=== PATIENT | female | born 1965 | race Caucasian/White ===

== ENCOUNTER 2021-09-28 18:44 | Inpatient (IN) ==
[2021-09-28] MEDS ORDERED: VANCOMYCIN IVPB PRN (21:48)
[2021-09-28] MEDS ORDERED: Dextrose Gel 15 GM/37.5 ML TUBE PO PRN ×2 (21:54)
[2021-09-28] MEDS ORDERED: D5% in Water 1,000 ML IVC PRN (21:54)
[2021-09-28] MEDS ORDERED: *HR* Dextrose 50 % in Water (Syg) 50 ML SYRINGE IVP PRN (21:54)
[2021-09-28] MEDS ORDERED: Budesonide/Formoterol 160/4.5 1 PUFF INH IH SCH (22:00)
[2021-09-29] MEDS ORDERED: Ondansetron ODT 4 MG TAB.RAPDIS SL PRN (04:20)
[2021-09-29] MEDS: *HR* OxyCODONE/APAP 5/325 TABLET PO PRN ×3 (04:43→19:56)
[2021-09-29] MEDS: carvediloL 6.25 MG TABLET PO SCH ×2 (08:02→17:20)
[2021-09-29] MEDS: Saliva Stimulant 44.3ml BOTTLE PO SCH ×4 (08:03→20:30)
[2021-09-29] MEDS: Insulin LISPRO 300 UNITS/3 ML VIAL SUBQ SCH ×4 (08:03→19:58)
[2021-09-29 08:09] LABS: Basophils % 0.4 %; Eosinophils # 0.1 K/mcL (0.0-0.6); Eosinophils % 1.5 %; Hematocrit 26.6 % (35.3-44.9); Immature Granulocytes % 1.1 % (0-4); Lymphocytes # 0.5 K/mcL (0.6-4.6); Lymphocytes % 7.4 %; Mean Corpuscular HGB Conc 30.1 g/dL (31.6-35.5); Mean Corpuscular Volume 96.4 fL (83.0-100.0); Monocytes # 0.3 K/mcL (0.0-1.3); Monocytes % 4.6 %; Neutrophils # 6.2 K/mcL (1.6-8.9); Platelet Count 123 K/mcL (140-400); Red Blood Count 2.76 M/mcL (3.82-4.97); Red Cell Distribution Width 16.2 % (11.5-14.5); White Blood Count 7.3 K/mcL (4.3-11.1)
[2021-09-29] MEDS: Renal Vitamin 1 CAP CAPSULE PO SCH (08:18)
[2021-09-29] MEDS: Aspirin Enteric Coated 81 MG Tablet PO SCH (08:18)
[2021-09-29] MEDS: hydrALAZINE 25 MG TABLET PO SCH ×3 (08:18→19:56)
[2021-09-29] MEDS: Cholecalciferol (D-3) 1,000 UNIT (25MCG) TABLET PO SCH (08:19)
[2021-09-29] MEDS: Vitamin B Complex/Vit C/Vit E 1 EACH TABLET PO SCH (08:19)
[2021-09-29] MEDS: NIFEdipine XL (24 HR) 60 MG TAB.ER.24 PO SCH (08:19)
[2021-09-29] MEDS: amLODIPine 5 MG TABLET PO SCH (08:19)
[2021-09-29] MEDS: Chlorhexidine Rinse 15 ML MOUTHWASH MM SCH ×2 (08:20→19:56)
[2021-09-29 08:34] LABS: Calcium 8.7 mg/dL (8.6-10.3); Potassium 4.5 mEq/L (3.5-5.1)
[2021-09-29] MEDS: Budesonide/Formoterol 160/4.5 1 PUFF INH IH SCH ×2 (09:11→21:25)
[2021-09-29] MEDS: Metoclopramide 10 MG/10 ML UD.LIQ PO PRN (18:39)
[2021-09-29] MEDS: Melatonin 3 MG TABLET PO PRN (19:56)
[2021-09-30] MEDS: Budesonide/Formoterol 160/4.5 1 PUFF INH IH SCH ×2 (08:04→22:09)
[2021-09-30] MEDS: Insulin LISPRO 300 UNITS/3 ML VIAL SUBQ SCH ×4 (08:36→20:15)
[2021-09-30] MEDS: *HR* OxyCODONE/APAP 5/325 TABLET PO PRN ×2 (08:37→20:40)
[2021-09-30] MEDS: Chlorhexidine Rinse 15 ML MOUTHWASH MM SCH ×2 (08:37→20:15)
[2021-09-30] MEDS: NIFEdipine XL (24 HR) 60 MG TAB.ER.24 PO SCH (08:38)
[2021-09-30] MEDS: amLODIPine 5 MG TABLET PO SCH (08:38)
[2021-09-30] MEDS: hydrALAZINE 25 MG TABLET PO SCH ×3 (08:38→20:15)
[2021-09-30] MEDS: Renal Vitamin 1 CAP CAPSULE PO SCH (08:38)
[2021-09-30] MEDS: Cholecalciferol (D-3) 1,000 UNIT (25MCG) TABLET PO SCH (08:38)
[2021-09-30] MEDS: carvediloL 6.25 MG TABLET PO SCH ×2 (08:38→17:29)
[2021-09-30] MEDS: Vitamin B Complex/Vit C/Vit E 1 EACH TABLET PO SCH (08:38)
[2021-09-30] MEDS: Aspirin Enteric Coated 81 MG Tablet PO SCH (08:38)
[2021-09-30] MEDS: Saliva Stimulant 44.3ml BOTTLE PO SCH ×4 (08:41→20:14)
[2021-10-01] MEDS: Metoclopramide 10 MG/10 ML UD.LIQ PO PRN (00:17)
[2021-10-01] MEDS: hydrALAZINE 25 MG TABLET PO SCH ×3 (07:39→20:39)
[2021-10-01] MEDS: Chlorhexidine Rinse 15 ML MOUTHWASH MM SCH ×3 (07:39→20:46)
[2021-10-01] MEDS: Aspirin Enteric Coated 81 MG Tablet PO SCH (07:40)
[2021-10-01] MEDS: NIFEdipine XL (24 HR) 60 MG TAB.ER.24 PO SCH (07:40)
[2021-10-01] MEDS: Renal Vitamin 1 CAP CAPSULE PO SCH (07:40)
[2021-10-01] MEDS: amLODIPine 5 MG TABLET PO SCH (07:40)
[2021-10-01] MEDS: Vitamin B Complex/Vit C/Vit E 1 EACH TABLET PO SCH (07:40)
[2021-10-01] MEDS: Insulin LISPRO 300 UNITS/3 ML VIAL SUBQ SCH ×4 (07:40→21:49)
[2021-10-01] MEDS: carvediloL 6.25 MG TABLET PO SCH ×2 (07:40→18:07)
[2021-10-01] MEDS: Cholecalciferol (D-3) 1,000 UNIT (25MCG) TABLET PO SCH (07:40)
[2021-10-01] MEDS: Saliva Stimulant 44.3ml BOTTLE PO SCH (07:41)
[2021-10-01] MEDS: Budesonide/Formoterol 160/4.5 1 PUFF INH IH SCH ×2 (08:11→20:53)
[2021-10-01] MEDS: *HR* OxyCODONE/APAP 5/325 TABLET PO PRN ×2 (13:13→20:43)
[2021-10-01] MEDS ORDERED: Vancomycin 500 MG in 0.9 % Sodium Chloride Mini Bag 100 ML IVPB ONE (18:00)
[2021-10-01] MEDS: *HR* Heparin 5,000 UNIT/ML VIAL SQ SCH (18:07)
[2021-10-01] MEDS: Melatonin 3 MG TABLET PO PRN (20:40)
[2021-10-02] MEDS: *HR* Heparin 5,000 UNIT/ML VIAL SQ SCH ×2 (05:34→20:51)
[2021-10-02] MEDS: hydrALAZINE 25 MG TABLET PO SCH ×3 (09:29→20:50)
[2021-10-02] MEDS: *HR* OxyCODONE/APAP 5/325 TABLET PO PRN ×3 (09:29→20:50)
[2021-10-02] MEDS: NIFEdipine XL (24 HR) 60 MG TAB.ER.24 PO SCH (09:30)
[2021-10-02] MEDS: carvediloL 6.25 MG TABLET PO SCH ×2 (09:31→20:51)
[2021-10-02] MEDS: Renal Vitamin 1 CAP CAPSULE PO SCH (09:31)
[2021-10-02] MEDS: Vitamin B Complex/Vit C/Vit E 1 EACH TABLET PO SCH (09:31)
[2021-10-02] MEDS: amLODIPine 5 MG TABLET PO SCH (09:31)
[2021-10-02] MEDS: Cholecalciferol (D-3) 1,000 UNIT (25MCG) TABLET PO SCH (09:31)
[2021-10-02] MEDS: Insulin LISPRO 300 UNITS/3 ML VIAL SUBQ SCH ×4 (09:31→20:50)
[2021-10-02] MEDS: Budesonide/Formoterol 160/4.5 1 PUFF INH IH SCH ×2 (09:34→21:44)
[2021-10-02] MEDS: Aspirin Enteric Coated 81 MG Tablet PO SCH (09:49)
[2021-10-02] MEDS: Chlorhexidine Rinse 15 ML MOUTHWASH MM SCH ×2 (18:47→20:51)
[2021-10-02] MEDS: Melatonin 3 MG TABLET PO PRN (20:49)
[2021-10-03] MEDS: *HR* Heparin 5,000 UNIT/ML VIAL SQ SCH ×2 (05:34→17:41)
[2021-10-03] MEDS: Insulin LISPRO 300 UNITS/3 ML VIAL SUBQ SCH ×4 (08:30→20:56)
[2021-10-03] MEDS: Budesonide/Formoterol 160/4.5 1 PUFF INH IH SCH ×2 (12:06→23:21)
[2021-10-03] MEDS: Cholecalciferol (D-3) 1,000 UNIT (25MCG) TABLET PO SCH (14:53)
[2021-10-03] MEDS: hydrALAZINE 25 MG TABLET PO SCH ×3 (14:53→20:50)
[2021-10-03] MEDS: NIFEdipine XL (24 HR) 60 MG TAB.ER.24 PO SCH (14:54)
[2021-10-03] MEDS: amLODIPine 5 MG TABLET PO SCH (14:54)
[2021-10-03] MEDS: carvediloL 6.25 MG TABLET PO SCH ×2 (14:54→17:41)
[2021-10-03] MEDS: Aspirin Enteric Coated 81 MG Tablet PO SCH (14:54)
[2021-10-03] MEDS: Renal Vitamin 1 CAP CAPSULE PO SCH (14:55)
[2021-10-03] MEDS: Vitamin B Complex/Vit C/Vit E 1 EACH TABLET PO SCH (14:55)
[2021-10-03] MEDS: Chlorhexidine Rinse 15 ML MOUTHWASH MM SCH ×2 (15:02→20:55)
[2021-10-03] MEDS: *HR* OxyCODONE/APAP 5/325 TABLET PO PRN (17:41)
[2021-10-03] MEDS: Melatonin 3 MG TABLET PO PRN (20:52)
[2021-10-04] MEDS: *HR* Heparin 5,000 UNIT/ML VIAL SQ SCH ×2 (05:40→17:22)
[2021-10-04 07:43] LABS: Basophils % 0.7 %; Eosinophils # 0.1 K/mcL (0.0-0.6); Eosinophils % 1.8 %; Hematocrit 26.2 % (35.3-44.9); Hemoglobin 7.8 g/dL (11.5-15.4); Immature Granulocytes % 1.1 % (0-4); Lymphocytes # 0.5 K/mcL (0.6-4.6); Lymphocytes % 8.8 %; Mean Corpuscular HGB Conc 29.8 g/dL (31.6-35.5); Mean Corpuscular Hemoglobin 29.9 pg (28.0-33.3); Mean Corpuscular Volume 100.4 fL (83.0-100.0); Mean Platelet Volume 10.5 fL (9.4-12.4); Monocytes # 0.6 K/mcL (0.0-1.3); Monocytes % 10.2 %; Neutrophils # 4.3 K/mcL (1.6-8.9); Platelet Count 152 K/mcL (140-400); Red Blood Count 2.61 M/mcL (3.82-4.97); Red Cell Distribution Width 16.1 % (11.5-14.5); Segmented Neutrophils % 77.4 %; White Blood Count 5.6 K/mcL (4.3-11.1)
[2021-10-04 07:44] LABS: Albumin 3.1 g/dL (3.5-5.7); Albumin/Globulin Ratio 0.8 (1.1-2.2); Bilirubin,Total 0.4 mg/dL (0.3-1.0); Calcium 9.5 mg/dL (8.6-10.3); Potassium 5.4 mEq/L (3.5-5.1); Total Protein 7.1 g/dL (6.4-8.9)
[2021-10-04] MEDS: Insulin LISPRO 300 UNITS/3 ML VIAL SUBQ SCH ×4 (09:12→21:18)
[2021-10-04] MEDS: Budesonide/Formoterol 160/4.5 1 PUFF INH IH SCH ×2 (09:35→21:59)
[2021-10-04] MEDS: Aspirin Enteric Coated 81 MG Tablet PO SCH (11:08)
[2021-10-04] MEDS: Renal Vitamin 1 CAP CAPSULE PO SCH (11:08)
[2021-10-04] MEDS: hydrALAZINE 25 MG TABLET PO SCH ×3 (11:08→21:17)
[2021-10-04] MEDS: amLODIPine 5 MG TABLET PO SCH (11:08)
[2021-10-04] MEDS: Vitamin B Complex/Vit C/Vit E 1 EACH TABLET PO SCH (11:09)
[2021-10-04] MEDS: Chlorhexidine Rinse 15 ML MOUTHWASH MM SCH ×2 (11:09→21:16)
[2021-10-04] MEDS: carvediloL 6.25 MG TABLET PO SCH ×2 (11:09→16:03)
[2021-10-04] MEDS: Cholecalciferol (D-3) 1,000 UNIT (25MCG) TABLET PO SCH (11:09)
[2021-10-04] MEDS: NIFEdipine XL (24 HR) 60 MG TAB.ER.24 PO SCH (11:09)
[2021-10-04] MEDS: *HR* OxyCODONE/APAP 5/325 TABLET PO PRN ×2 (12:19→21:16)
[2021-10-04] MEDS: Melatonin 3 MG TABLET PO PRN (21:17)
[2021-10-05] MEDS: *HR* Heparin 5,000 UNIT/ML VIAL SQ SCH ×2 (05:56→16:51)
[2021-10-05] MEDS: *HR* OxyCODONE/APAP 5/325 TABLET PO PRN ×3 (06:44→22:28)
[2021-10-05] MEDS: Budesonide/Formoterol 160/4.5 1 PUFF INH IH SCH ×2 (09:43→21:30)
[2021-10-05] MEDS: carvediloL 6.25 MG TABLET PO SCH ×2 (11:04→16:51)
[2021-10-05] MEDS: Aspirin Enteric Coated 81 MG Tablet PO SCH (11:04)
[2021-10-05] MEDS: Insulin LISPRO 300 UNITS/3 ML VIAL SUBQ SCH ×4 (11:04→22:24)
[2021-10-05] MEDS: Chlorhexidine Rinse 15 ML MOUTHWASH MM SCH ×2 (11:04→22:25)
[2021-10-05] MEDS: Cholecalciferol (D-3) 1,000 UNIT (25MCG) TABLET PO SCH (11:05)
[2021-10-05] MEDS: NIFEdipine XL (24 HR) 60 MG TAB.ER.24 PO SCH (11:05)
[2021-10-05] MEDS: amLODIPine 5 MG TABLET PO SCH (11:05)
[2021-10-05] MEDS: Renal Vitamin 1 CAP CAPSULE PO SCH (11:05)
[2021-10-05] MEDS: Vitamin B Complex/Vit C/Vit E 1 EACH TABLET PO SCH (11:05)
[2021-10-05] MEDS: hydrALAZINE 25 MG TABLET PO SCH ×3 (11:05→22:28)
[2021-10-05] MEDS: Melatonin 3 MG TABLET PO PRN (22:28)
[2021-10-06] MEDS: *HR* Heparin 5,000 UNIT/ML VIAL SQ SCH ×2 (06:26→16:54)
[2021-10-06] MEDS: Renal Vitamin 1 CAP CAPSULE PO SCH (09:11)
[2021-10-06] MEDS: amLODIPine 5 MG TABLET PO SCH (09:12)
[2021-10-06] MEDS: NIFEdipine XL (24 HR) 60 MG TAB.ER.24 PO SCH (09:12)
[2021-10-06] MEDS: hydrALAZINE 25 MG TABLET PO SCH ×3 (09:14→20:23)
[2021-10-06] MEDS: Chlorhexidine Rinse 15 ML MOUTHWASH MM SCH ×2 (09:14→20:22)
[2021-10-06] MEDS: Aspirin Enteric Coated 81 MG Tablet PO SCH (09:14)
[2021-10-06] MEDS: Vitamin B Complex/Vit C/Vit E 1 EACH TABLET PO SCH (09:15)
[2021-10-06] MEDS: Cholecalciferol (D-3) 1,000 UNIT (25MCG) TABLET PO SCH (09:15)
[2021-10-06] MEDS: carvediloL 6.25 MG TABLET PO SCH ×2 (09:15→16:54)
[2021-10-06] MEDS: *HR* OxyCODONE/APAP 5/325 TABLET PO PRN ×2 (09:17→20:21)
[2021-10-06] MEDS: Insulin LISPRO 300 UNITS/3 ML VIAL SUBQ SCH ×4 (09:18→20:22)
[2021-10-06] MEDS: Budesonide/Formoterol 160/4.5 1 PUFF INH IH SCH ×2 (09:47→23:07)
[2021-10-06] MEDS: Ondansetron ODT 4 MG TAB.RAPDIS SL PRN ×2 (14:01→20:26)
[2021-10-06] MEDS ORDERED: *HR* Promethazine 25 MG/ML VIAL IM ONE (15:18)
[2021-10-06] MEDS: Melatonin 3 MG TABLET PO PRN (20:22)
[2021-10-06] MEDS: Metoclopramide 10 MG/10 ML UD.LIQ PO PRN (20:22)
[2021-10-07] MEDS: *HR* OxyCODONE/APAP 5/325 TABLET PO PRN (05:44)
[2021-10-07] MEDS: Ondansetron ODT 4 MG TAB.RAPDIS SL PRN (05:44)
[2021-10-07] MEDS: *HR* Heparin 5,000 UNIT/ML VIAL SQ SCH ×2 (05:48→17:13)
[2021-10-07] MEDS: Renal Vitamin 1 CAP CAPSULE PO SCH (09:11)
[2021-10-07] MEDS: hydrALAZINE 25 MG TABLET PO SCH ×3 (09:12→21:41)
[2021-10-07] MEDS: Vitamin B Complex/Vit C/Vit E 1 EACH TABLET PO SCH (09:13)
[2021-10-07] MEDS: Aspirin Enteric Coated 81 MG Tablet PO SCH (09:13)
[2021-10-07] MEDS: carvediloL 6.25 MG TABLET PO SCH ×2 (09:13→17:13)
[2021-10-07] MEDS: NIFEdipine XL (24 HR) 60 MG TAB.ER.24 PO SCH (09:14)
[2021-10-07] MEDS: amLODIPine 5 MG TABLET PO SCH (09:15)
[2021-10-07] MEDS: Chlorhexidine Rinse 15 ML MOUTHWASH MM SCH ×2 (09:15→21:41)
[2021-10-07] MEDS: Cholecalciferol (D-3) 1,000 UNIT (25MCG) TABLET PO SCH (09:15)
[2021-10-07] MEDS: Insulin LISPRO 300 UNITS/3 ML VIAL SUBQ SCH ×4 (09:17→21:41)
[2021-10-07] MEDS: Budesonide/Formoterol 160/4.5 1 PUFF INH IH SCH ×2 (10:25→22:22)
[2021-10-07 14:25] LABS: Hemoglobin 7.9 g/dL (11.5-15.4); Mean Corpuscular HGB Conc 29.3 g/dL (31.6-35.5); Mean Corpuscular Hemoglobin 29.6 pg (28.0-33.3); Mean Corpuscular Volume 101.1 fL (83.0-100.0); Mean Platelet Volume 10.5 fL (9.4-12.4); Platelet Count 154 K/mcL (140-400); Red Blood Count 2.67 M/mcL (3.82-4.97); Red Cell Distribution Width 16.5 % (11.5-14.5); White Blood Count 5.2 K/mcL (4.3-11.1)
[2021-10-07 14:37] LABS: Calcium 8.6 mg/dL (8.6-10.3)
[2021-10-07] MEDS ORDERED: *HR* Promethazine 25 MG/ML VIAL IM ONE (14:59)
[2021-10-08] MEDS: Ondansetron ODT 4 MG TAB.RAPDIS SL PRN (01:22)
[2021-10-08] MEDS: *HR* Heparin 5,000 UNIT/ML VIAL SQ SCH ×2 (06:14→17:11)
[2021-10-08] MEDS: *HR* OxyCODONE/APAP 5/325 TABLET PO PRN ×3 (07:30→21:20)
[2021-10-08] MEDS: Budesonide/Formoterol 160/4.5 1 PUFF INH IH SCH ×2 (09:35→22:07)
[2021-10-08] MEDS: Insulin LISPRO 300 UNITS/3 ML VIAL SUBQ SCH ×4 (14:04→21:20)
[2021-10-08] MEDS: Aspirin Enteric Coated 81 MG Tablet PO SCH (14:06)
[2021-10-08] MEDS: Chlorhexidine Rinse 15 ML MOUTHWASH MM SCH ×2 (14:09→21:18)
[2021-10-08] MEDS: hydrALAZINE 25 MG TABLET PO SCH ×3 (14:09→21:19)
[2021-10-08] MEDS: Renal Vitamin 1 CAP CAPSULE PO SCH (14:10)
[2021-10-08] MEDS: amLODIPine 5 MG TABLET PO SCH (14:10)
[2021-10-08] MEDS: NIFEdipine XL (24 HR) 60 MG TAB.ER.24 PO SCH (14:10)
[2021-10-08] MEDS: Cholecalciferol (D-3) 1,000 UNIT (25MCG) TABLET PO SCH (14:11)
[2021-10-08] MEDS: Vitamin B Complex/Vit C/Vit E 1 EACH TABLET PO SCH (14:11)
[2021-10-08] MEDS: carvediloL 6.25 MG TABLET PO SCH ×2 (14:12→17:10)
[2021-10-09] MEDS: Ondansetron ODT 4 MG TAB.RAPDIS SL PRN ×2 (04:02→11:33)
[2021-10-09] MEDS: *HR* Heparin 5,000 UNIT/ML VIAL SQ SCH (06:40)
[2021-10-09 07:33] VITALS: BP 147/81; PULSE 69
[2021-10-09] MEDS: Insulin LISPRO 300 UNITS/3 ML VIAL SUBQ SCH (08:22)
[2021-10-09] MEDS: Vitamin B Complex/Vit C/Vit E 1 EACH TABLET PO SCH (08:30)
[2021-10-09] MEDS: Aspirin Enteric Coated 81 MG Tablet PO SCH (08:30)
[2021-10-09] MEDS: Cholecalciferol (D-3) 1,000 UNIT (25MCG) TABLET PO SCH (08:31)
[2021-10-09] MEDS: Renal Vitamin 1 CAP CAPSULE PO SCH (08:31)
[2021-10-09] MEDS: carvediloL 6.25 MG TABLET PO SCH (08:31)
[2021-10-09] MEDS: NIFEdipine XL (24 HR) 60 MG TAB.ER.24 PO SCH (08:32)
[2021-10-09] MEDS: hydrALAZINE 25 MG TABLET PO SCH (08:32)
[2021-10-09] MEDS: amLODIPine 5 MG TABLET PO SCH (08:32)
[2021-10-09] MEDS: Chlorhexidine Rinse 15 ML MOUTHWASH MM SCH (08:33)
[2021-10-09] MEDS: *HR* OxyCODONE/APAP 5/325 TABLET PO PRN (08:49)
[2021-10-09] MEDS: Budesonide/Formoterol 160/4.5 1 PUFF INH IH SCH (09:16)
[2021-10-09 09:56] VITALS: RESP 17; O2SAT 96
[2021-10-09 10:39] VITALS: TEMP 98.2
== END 2021-10-09 11:56 | disposition home health service (06) ==
LOC: INPPIK 09-29 00:33
PROVIDERS: ADMIT Family Medicine; ATTEND Family Medicine